=== PATIENT | female | born 1955 | race African-American/Black ===

== ENCOUNTER 2017-11-09 11:43 | Inpatient (IN) | payer MEDICAID ==
[~2017-11-09] VITALS: Ht 152.4 cm; Wt 48.6 kg
[2017-11-09] MEDS ORDERED: SODIUM CHLORIDE 0.9% 1,000 ML IV ONE (12:01)
[2017-11-09 12:19] LABS: BASOPHILS % 0.5 % (0.0-2.0); HEMATOCRIT. 36.6 % (36.0-48.0); HEMOGLOBIN. 11.9 g/dL (12.0-16.0); LYMPHOCYTES % 18.1 % (20.0-50.0); MEAN CORPUSCULAR HEMOGLOBIN 27.7 pg (28.0-32.0); MEAN CORPUSCULAR VOLUME 84.9 fL (81.0-99.0); MEAN PLATELET VOLUME 7.4 fl (7.4-10.4); MONOCYTES % 6.7 % (2.0-8.0); NEUTROPHILS % 73.7 % (40.0-76.0); PLATELET 216 x1000/uL (130-400); RED BLOOD CELL COUNT 4.31 mill/uL (4.2-5.4); RED CELL DISTRIBUTION WIDTH 14.5 % (11.6-14.6)
[2017-11-09 12:27] LABS: INR 1.1; PARTIAL THROMBOPLASTIN TIME 23.2 sec (23.4-31.0)
[2017-11-09 12:34] LABS: CHLORIDE 108 mEq/L (98-107)
[2017-11-09 18:00] VITALS: BP 156/90
[2017-11-09 18:34] VITALS: BP 150/90
[2017-11-09] MEDS ORDERED: HYDROCODONE/ACETAMINOPHEN 5/325MG TABLET PO PRN (19:15)
[2017-11-09] MEDS ORDERED: ZOLPIDEM TARTRATE 5MG TABLET PO PRN (19:15)
[2017-11-09] MEDS ORDERED: ACETAMINOPHEN 325MG TABLET PO PRN (19:15)
[2017-11-09] MEDS ORDERED: CLONIDINE 0.2MG TABLET PO PRN (19:15)
[2017-11-09 20:00] VITALS: BP 97/66
[2017-11-09 23:46] LABS: CREATINE KINASE 115 IU/L (26-192)
[2017-11-10] VITALS: BP 163/79
[2017-11-10 04:00] VITALS: BP 148/83
[2017-11-10 05:54] LABS: BASOPHILS % 0.7 % (0.0-2.0); EOSINOPHILS % 1.7 % (0.0-5.0); HEMATOCRIT. 35.8 % (36.0-48.0); LYMPHOCYTES % 17.8 % (20.0-50.0); MEAN CORPUSCULAR HEMOGLOBIN 28.2 pg (28.0-32.0); MEAN CORPUSCULAR VOLUME 83.9 fL (81.0-99.0); MEAN PLATELET VOLUME 7.6 fl (7.4-10.4); MONOCYTES % 7.4 % (2.0-8.0); NEUTROPHILS % 72.4 % (40.0-76.0); PLATELET 191 x1000/uL (130-400); RED BLOOD CELL COUNT 4.27 mill/uL (4.2-5.4); RED CELL DISTRIBUTION WIDTH 14.3 % (11.6-14.6)
[2017-11-10 06:23] LABS: CHLORIDE 109 mEq/L (98-107)
[2017-11-10 06:24] LABS: CREATINE KINASE 112 IU/L (26-192)
[2017-11-10 08:00] VITALS: BP 169/86
[2017-11-10] MEDS ORDERED: ENOXAPARIN 30MG/0.3ML SYR SUBCUT SCH (09:00)
[2017-11-10] MEDS ORDERED: ASPIRIN 81MG TABLET PO SCH (09:00)
[2017-11-10 10:16] LABS: T4 FREE 0.78 ng/dL (0.76-1.46)
[2017-11-10 12:00] VITALS: BP_SYST 162; BP_SYST 170; BP_SYST 175; BP_DIAS 65; BP_DIAS 95; BP_DIAS 98; BP_DIAS 99
[2017-11-10] MEDS: SODIUM CHLORIDE 0.9% 1,000 ML IV SCH (12:52)
[2017-11-10 15:21] LABS: CREATINE KINASE 116 IU/L (26-192); CREATINE KINASE MB FRACTION 0.8 ng/mL (0.5-3.6)
[2017-11-10 19:56] VITALS: BP_SYST 96; BP_SYST 99; BP_DIAS 58; BP_DIAS 70; BP_DIAS 74
[2017-11-10 23:45] VITALS: BP 108/78
[2017-11-11 00:05] LABS: CREATINE KINASE 108 IU/L (26-192); CREATINE KINASE MB FRACTION 0.9 ng/mL (0.5-3.6)
[2017-11-11] MEDS: SODIUM CHLORIDE 0.9% 1,000 ML IV SCH (03:51)
[2017-11-11 03:57] VITALS: BP_SYST 118; BP_SYST 126; BP_SYST 145; BP_DIAS 86; BP_DIAS 88; BP_DIAS 89
[2017-11-11 08:25] LABS: CREATINE KINASE 102 IU/L (26-192); CREATINE KINASE MB FRACTION 0.8 ng/mL (0.5-3.6)
[2017-11-11 08:26] VITALS: BP 100/64
[2017-11-11] MEDS ORDERED: ENOXAPARIN 30MG/0.3ML SYR SUBCUT SCH (09:00)
[2017-11-11] MEDS ORDERED: ENOXAPARIN 40MG/0.4ML SYR SUBCUT SCH (09:00)
== END 2017-11-11 10:05 | disposition home or self-care (01) | DRG 48 ==
LOC: ER 12:16 → 5WST 13:42 → ENRESERV 16:47
PROVIDERS: ADMIT Internal Medicine; ATTEND Internal Medicine
DX: G90.8 Other disorders of autonomic nervous system (principal); J84.9 Interstitial pulmonary disease, unspecified; I95.9 Hypotension, unspecified; E87.8 Other disorders of electrolyte and fluid balance, not elsewhere classified; I11.9 Hypertensive heart disease without heart failure; E44.1 Mild protein-calorie malnutrition; E11.9 Type 2 diabetes mellitus without complications; E86.0 Dehydration; Z86.73 Personal history of transient ischemic attack (TIA), and cerebral infarction without residual deficits
CPT/HCPCS: 36415; 71045; 80061; 82550; 82553; 82962; 83036; 83880; 84439; 84443; 84484; 85379; 93005; 93880; 93970; 96360; 96361; 99285; J1650; J7030